=== PATIENT | female | born 1970 | race Caucasian/White ===

== ENCOUNTER 2018-06-26 09:20 | Inpatient (IN) ==
[2018-06-26] MEDS ORDERED: ceFAZolin 2 GM Premix Inj 2 GM/50 ML PIGGYBACK IV.SIG SCH (10:00)
[2018-06-26] MEDS ORDERED: Chlorhexidine Gluconate 2% 1 Pack (2 Cloths) TOPICAL ONE (10:15)
[2018-06-26] MEDS ORDERED: Sodium Chlor 0.9% Inj 500 ML IV.CONT ONE (10:15)
[2018-06-26] MEDS ORDERED: Metoprolol Tartrate 25 MG Tablet PO ONE (10:15)
[2018-06-26 10:19] LABS: Baso % (Auto) 0.6 % (0.0-2.0); Eos # (Auto) 0.2 th/mm3 (0.0-0.4); Eos % (Auto) 3.4 % (0.0-4.0); Hematocrit 35.9 % (35.0-46.0); Hemoglobin 12.2 gm/dL (11.6-15.3); Lymph # (Auto) 1.6 th/mm3 (1.0-4.8); Mean Corpuscular HGB Conc 34.1 % (32.0-36.0); Mean Corpuscular Hemoglobin 30.6 pg (27.0-34.0); Mean Corpuscular Volume 89.6 fL (80.0-100.0); Mean Platelet Volume 8.4 fL (7.0-11.0); Mono # (Auto) 0.6 th/mm3 (0.0-0.9); Mono % (Auto) 9.9 % (0.0-8.0); Neut % (Auto) 62.1 % (16.0-70.0); Platelet Count 206 th/mm3 (150-450); Red Cell Distribution Width 13.2 % (11.6-17.2); White Blood Count 6.5 th/mm3 (4.0-11.0)
--- NOTE | 2018-06-26 12:22 | P.OP ---
- Preoperative Diagnosis (1) Excessive menses (2) High grade squamous intraepithelial cervical dysplasia Date of procedure: 06/26/18 Procedure: PEREZ BSO Anesthesia: GETA Surgeon: Braydon Oswald MD [address] Clerk: Delia Finch Pathology: other (uterus cervix and BSO)
[2018-06-26] MEDS ORDERED: *HYDROmorphone PF Inj 1 MG/ML Ampul PERIprocedural Use ONLY ONE ×2 (12:43→13:00)
--- NOTE | 2018-06-26 12:46 | MP ---
cc: Braydon Oswald MD DATE OF OPERATION: 06/26/2018 DATE OF PROCEDURE: 06/26/2018. PROCEDURE: Total abdominal hysterectomy, bilateral salpingo-oophorectomy. PREOPERATIVE DIAGNOSIS: Severe dysplasia with excessive menses. POSTOPERATIVE DIAGNOSIS: Severe dysplasia with excessive menses. SURGEON: Dr. Braydon Oswald. ESTIMATED BLOOD LOSS: 100 mL. COMPLICATIONS: None. FINDINGS: The patient had an 8 cm uterus. This was adherent to the anterior abdominal wall. Moderate scar tissue of the fallopian tubes and ovaries to the uterus and the pelvic sidewall. ASSISTED: Delia Deutsch APRN. ANESTHESIA: General. PROCEDURE IN DETAIL: After informed consent, the patient was taken to the operating room where she was placed in supine position. Woodson catheter was then placed to gravity. Abdomen, perineum, vagina were prepped and draped in the normal sterile fashion. Timeout was taken. Once a timeout was taken and agreed upon, a Pfannenstiel skin incision was carried sharply to the old scar to the fascia. The fascia was nicked in the midline. The incision was extended laterally using Junior scissors. Rectus muscles dissected off, fascia, sharp and blunt dissection secondary to scar tissue. Once we completely dissected the rectus muscle off the fascia in the area of surgery the rectus muscle in the midline. Peritoneum was bluntly entered, incisions had to be extended upward and downward with sharp dissection secondary to scar tissue. At this point, the uterus was noted to be adherent to the anterior abdominal wall and the ovary, especially the right was adherent to the pelvic sidewall. Using Kari clamps we elevated the uterus. We dissected off the anterior abdominal wall first avoiding injury to the bladder, pushed the bladder down on the cervix. At this point, round ligaments were identified. We opened the round ligaments dissected the round ligaments. On the left, once the round ligaments had been bisected and sutured we were able to come across the infundibulopelvic ligament and remove that ovary along with the uterus on the right. The ovary was adherent to the pelvic sidewall and decision was made to take the uteroovarian ligament and leave the ovary in place for now. At this point, we continued down the broad ligament taking the uterine arteries clamped, cutting, and tying as we went with 0 Vicryl suture. Once we reached the bladder flap, we dissected the bladder off the lower uterine segment. There was scar tissues from the . We pushed the bladder all the way off the cervix. Once we were down pushed down all the way, we were able to take straight clamps, take the cervical branches of the uterine arteries and then came across the vagina with curved Asya's. Closed the vaginal cuff easily. Both angles were closed and a single stitch was required with a very small 0.5 cm space in the middle. This was closed with a [id number] avoiding injury to the bladder. The urine remained clear. At this point, the right ovary was dissected off the pelvic sidewall with sharp and blunt dissection. Once the ovary was freed, the infundibulopelvic ligament was identified. We came across with a clamp, the fallopian tube and ovary removed intact. Both ovaries and fallopian tubes have been removed along with the uterus. Vaginal cuff was closed, irrigated well copiously. There was no active bleeding. All the procedure was ended. All instruments were removed. The rectus muscles brought back together and then the fascia was closed with a #1 Vicryl suture. The patient tolerated the procedure well. She was taken to the recovery room in stable condition after lap and instrument counts reported as correct. MD CRISTINA Benoit/luis , 12:19 PM , 12:27 PM
[2018-06-26] MEDS ORDERED: fentaNYL Citrate Inj 100 MCG/2 ML Ampul ONE (13:14)
[2018-06-26] MEDS: Gabapentin 300 MG Capsule PO SCH ×2 (15:47→19:09)
[2018-06-26] MEDS: buPROPion 150 MG 12 HR Tablet PO SCH (16:10)
[2018-06-26] MEDS: HYDROmorphone PF Inj 1 MG/ML Ampul IV.PUSH PRN (17:12)
[2018-06-26] MEDS ORDERED: QUEtiapine 100 MG Tablet PO SCH (21:00)
[2018-06-26] MEDS ORDERED: QUEtiapine 25 MG Tablet PO SCH (21:00)
[2018-06-26] MEDS: Docusate Sodium 100 MG Capsule PO SCH (21:23)
[2018-06-27] MEDS: HYDROmorphone PF Inj 1 MG/ML Ampul IV.PUSH PRN (04:27)
[2018-06-27 05:49] LABS: Baso % (Auto) 0.2 % (0.0-2.0); Eos % (Auto) 0.1 % (0.0-4.0); Hematocrit 32.7 % (35.0-46.0); Lymph # (Auto) 1.3 th/mm3 (1.0-4.8); Lymph % (Auto) 14.3 % (9.0-44.0); Mean Corpuscular HGB Conc 33.7 % (32.0-36.0); Mean Corpuscular Hemoglobin 30.5 pg (27.0-34.0); Mean Corpuscular Volume 90.3 fL (80.0-100.0); Mean Platelet Volume 8.4 fL (7.0-11.0); Mono # (Auto) 0.8 th/mm3 (0.0-0.9); Mono % (Auto) 9.2 % (0.0-8.0); Neut % (Auto) 76.2 % (16.0-70.0); Platelet Count 208 th/mm3 (150-450); Red Blood Count 3.62 mil/mm3 (4.00-5.30); Red Cell Distribution Width 13.4 % (11.6-17.2); White Blood Count 9.2 th/mm3 (4.0-11.0)
[2018-06-27] MEDS: buPROPion 150 MG 12 HR Tablet PO SCH (08:00)
[2018-06-27] MEDS: Gabapentin 300 MG Capsule PO SCH ×2 (08:01→12:02)
[2018-06-27] MEDS: Docusate Sodium 100 MG Capsule PO SCH (08:08)
[2018-06-27] MEDS ORDERED: Lisinopril 20 MG Tablet PO SCH (09:00)
[2018-06-27] MEDS ORDERED: QUEtiapine 25 MG Tablet PO SCH (09:00)
--- NOTE | 2018-06-27 13:16 | P.PNOB ---
Subjective Post op day: 1 Interval history: patient post op day #1 but voiding ambulating and passing flatus, she is smoking in bathroom and ready for DC home Objective Vital Signs/I&O: Vital Signs 06/26/18 14:00 06/26/18 16:15 06/26/18 17:35 Temperature 98.0 F 97.6 F 98.0 F Pulse Rate 54 L 51 L 67 Respiratory Rate 16 18 16 Blood Pressure 147/73 H 170/74 H 129/61 Pulse Oximetry 98 99 94 L 06/26/18 20:17 06/27/18 00:20 06/27/18 04:21 Temperature 97.5 F L 98.3 F 98.0 F Pulse Rate 51 L 60 67 Respiratory Rate 16 16 16 Blood Pressure 141/72 H 137/67 135/71 Pulse Oximetry 97 100 99 06/27/18 08:10 Temperature 98.1 F Pulse Rate 64 Respiratory Rate 20 Blood Pressure 103/61 Pulse Oximetry 96 Intake & Output 06/26/18 06/27/18 06/27/18 18:59 06:59 18:59 Intake Total 550 / 550 2000 / 2000 Output Total 325 / 325 2069 400 / 400 Balance 225 / 225 -70 / -70 -400 / -400 Weight 120.9 kg Intake: IV 50 / 50 2000 / 2000 LR 1000 mL Inj 1,000 ML @ 125 2000 / 2000 mls/hr IV.CONT .Q8H [facility] Rx#: [id number] Ancef 2 GM Premix Inj 2 gm In 50 / 50 50 ml @ 100 mls/hr IV.SIG LOADING UNIT TOOL SETTER [facility] Rx#:[id number] Anesthesia Amount 500 / 500 Output: Urine 400 / 400 Estimated Blood Loss 200 / 200 Urine Amount (Catheter) 125 / 125 2069 Indwelling Urethral Catheter 125 / 125 2069 Other: Weight On Admission 120.9 kg Result Diagrams: 06/27/18 05:21 Objective Remarks: GENERAL: Well-nourished, well-developed patient. . ABDOMEN/GI: Abdomen soft, non-tender, bowel sounds present. Incision: Clean, dry and intact. Fundus: Firm, non-tender at umbilicus. GENITOURINARY: Light to moderate bleeding. EXTREMITIES: No cyanosis or edema, non-tender, without signs of DVT. Medications and IVs: Active Medications Bupropion HCl (Wellbutrin Sr) 150 mg PO DAILY [facility] Last Admin: 06/27/18 08:00 Dose: 150 mg Citalopram Hydrobromide (Celexa) 40 mg PO DAILY [facility] Last Admin: 06/27/18 08:00 Dose: 40 mg Diphenhydramine HCl (Benadryl) 25 mg PO Q6H PRN PRN Reason: ITCHING Docusate Sodium (Colace) 100 mg PO BID [facility] Last Admin: 06/27/18 08:08 Dose: 100 mg Gabapentin (Neurontin) 300 mg PO TID [facility] Last Admin: 06/27/18 12:02 Dose: 300 mg Hydrochlorothiazide (Microzide) 12.5 mg PO DAILY [facility] Last Admin: 06/27/18 08:00 Dose: 12.5 mg Hydromorphone HCl (Dilaudid Pf Inj) 1 mg IV.PUSH Q4H PRN PRN Reason: BREAKTHROUGH PAIN Last Admin: 06/27/18 04:27 Dose: 1 mg Cefazolin Sodium/Dextrose (Ancef 2 Gm Premix Inj) 2 gm in 50 mls @ 100 mls/hr IV.SIG LOADING UNIT TOOL SETTER [facility] Stop: 06/29/18 09:59 Last Infusion: 06/26/18 11:06 Dose: Infused Lactated Ringer's (Lr 1000 Ml Inj) 1,000 mls @ 125 mls/hr IV.CONT .Q8H [facility] Last Admin: 06/27/18 04:26 Dose: 125 mls/hr Lisinopril (Prinivil) 20 mg PO DAILY [facility] Last Admin: 06/27/18 08:57 Dose: 20 mg Lorazepam (Ativan Inj) 1 mg IV.PUSH Q6H PRN PRN Reason: ANXIETY Ondansetron HCl (Zofran Inj) 4 mg IV.PUSH Q6H PRN PRN Reason: NAUSEA OR VOMITING Last Admin: 06/26/18 16:11 Dose: 4 mg Oxycodone/Acetaminophen (Percocet 5/325 Mg) 2 tab PO Q4H PRN PRN Reason: PAIN SCALE 6 TO 10 Last Admin: 06/27/18 12:01 Dose: 2 tab Oxycodone/Acetaminophen (Percocet 5/325 Mg) 1 tab PO Q4H PRN PRN Reason: PAIN SCALE 1 TO 5 Promethazine HCl (Phenergan Inj) 25 mg IM Q6H PRN PRN Reason: NAUSEA OR VOMITING Last Admin: 06/26/18 21:21 Dose: 25 mg Quetiapine Fumarate (Seroquel) 25 mg PO DAILY [facility] Last Admin: 06/27/18 08:01 Dose: 25 mg Quetiapine Fumarate (Seroquel) 25 mg PO HS [facility] Last Admin: 06/26/18 21:22 Dose: 25 mg Quetiapine Fumarate (Seroquel) 100 mg PO HS [facility] Last Admin: 06/26/18 21:23 Dose: 100 mg Sodium Chloride (Ns Flush) 2 ml IV.FLUSH BID [facility] Last Admin: 06/27/18 08:08 Dose: Not Given Sodium Chloride (Ns Flush) 2 ml IV.FLUSH PRN PRN PRN Reason: FLUSH AFTER USING IV ACCESS Last Admin: 06/27/18 04:28 Dose: 2 ml Assessment and Plan - Diagnosis (1) High grade squamous intraepithelial cervical dysplasia Code(s): R87.613 - High grade squamous intraepithelial lesion on cytologic smear of cervix (HGSIL) Status: Acute (2) Excessive menses Code(s): N92.0 - Excessive and frequent menstruation with regular cycle Status : Acute - Plan dc today at Pt request
--- NOTE | 2018-06-27 13:24 | P.DS ---
Date of admission: 06/26/18 09:20 Primary care physician: Pieter Jaquez MD Brief History from admission: dysplasia and excessive menses, She had PEREZ BSO, ready for DC home DS: Diagnosis - Discharge Diagnosis (1) High grade squamous intraepithelial cervical dysplasia Status: Acute (2) Excessive menses Status: Acute DS: Medications - Discharge Medications Prescriptions: oxycodone-acetaminophen 2 tab PO Q4H PRN 3 Days #24 tab PRN Reason: Pain Scale 6 To 10 DS: Summary Hospital Course: pt came and had PEREZ BSO, and DC home - Time Spent with Patient Total time spent providing and/or coordinating discharge services: Less than 30 minutes Exam Vital signs: Vital Signs 06/26/18 14:00 06/26/18 16:15 06/26/18 17:35 Temperature 98.0 F 97.6 F 98.0 F Pulse Rate 54 L 51 L 67 Respiratory Rate 16 18 16 Blood Pressure 147/73 H 170/74 H 129/61 Pulse Oximetry 98 99 94 L 06/26/18 20:17 06/27/18 00:20 06/27/18 04:21 Temperature 97.5 F L 98.3 F 98.0 F Pulse Rate 51 L 60 67 Respiratory Rate 16 16 16 Blood Pressure 141/72 H 137/67 135/71 Pulse Oximetry 97 100 99 06/27/18 08:10 Temperature 98.1 F Pulse Rate 64 Respiratory Rate 20 Blood Pressure 103/61 Pulse Oximetry 96 Intake & Output 06/26/18 06/27/18 06/27/18 18:59 06:59 18:59 Intake Total 550 / 550 1999 / 1999 Output Total 325 / 325 2069 400 / 400 Balance 225 / 225 -70 / -70 -400 / -400 Weight 120.9 kg Intake: IV 50 / 50 1999 / 2000 LR 1000 mL Inj 1,000 ML @ 125 2000 / 2000 mls/hr IV.CONT .Q8H [facility] Rx#: [id number] Ancef 2 GM Premix Inj 2 gm In 50 / 50 50 ml @ 100 mls/hr IV.SIG CIGAR MAKER KAYLEE Rx#:[id number] Anesthesia Amount 500 / 500 Output: Urine 400 / 400 Estimated Blood Loss 200 / 200 Urine Amount (Catheter) 125 / 125 2069 Indwelling Urethral Catheter 125 / 125 2069 Other: Weight On Admission 120.9 kg - Constitutional no acute distress Results Procedures completed during hospitalization: PEREZ BSO Pending studies at discharge: Pending at discharge 06/26/18 14:05 Surgical [PTH] Routine Labs on day of discharge: Labs from last 24 hours 06/27/18 05:21 WBC 9.2 RBC 3.62 L Hgb 11.0 L Hct 32.7 L MCV 90.3 MCH 30.5 MCHC 33.7 RDW 13.4 Plt Count 208 MPV 8.4 Neut % (Auto) 76.2 H Lymph % (Auto) 14.3 [place] % (Auto) 9.2 H Eos % (Auto) 0.1 Baso % (Auto) 0.2 Neut # (Auto) 7.0 Lymph # (Auto) 1.3 [place] # (Auto) 0.8 Eos # (Auto) 0.0 Baso # (Auto) 0.0 WBC Differential . Differential Comment Auto diff final Discharge Plan - Discharge Disposition Patient Disposition: 01 Discharge Home - Discharge Condition Condition: Good - Discharge Order Discharge Orders: Discharge Order (Routine); Ordered 06/27/18 Ordered By: Braydon Oswald - Physicians Team Primary Care Provider: Pieter Jaquez Attending Provider: Braydon Oswald Other Providers: ; - Rxs /Orders / Referrals /Forms Prescriptions: New oxycodone-acetaminophen 5-325 mg Tablet 2 tab PO Q4H PRN (Reason: Pain Scale 6 To 10) 3 Days Qty: 24 RF: 0 Continue albuterol sulfate [Ventolin HFA] 90 mcg/actuation Hfa Aerosol Inhaler 1 puff INHALATION Q4-6H PRN (Reason: Shortness Of Breath) atorvastatin [Lipitor] 20 mg Tablet 20 mg PO DAILY bupropion HCl [Wellbutrin XL] 150 mg Tablet Extended Release 24 Hr 150 mg PO QAM cholecalciferol (vitamin D3) [Vitamin D3] 5,000 unit Tablet 5,000 unit PO DAILY citalopram [Celexa] 40 mg Tablet 40 mg PO DAILY cyanocobalamin (vitamin B-12) 1,000 mcg/mL Kit 1,000 mcg IM QMONTH cyclobenzaprine 10 mg Tablet 10 mg PO BID ergocalciferol (vitamin D2) [Vitamin D2] 50,000 unit Capsule 50,000 unit PO QWEEK fluticasone-vilanterol [Breo Ellipta] 100-25 mcg/dose Blister With Device 1 inh INHALATION DAILY folic acid 1 mg Tablet 1 mg PO DAILY gabapentin 300 mg Capsule 300 mg PO TID lisinopril-hydrochlorothiazide 20-12.5 mg Tablet 1 tab PO DAILY lorazepam 1 mg Tablet 1 mg PO DAILY meloxicam [Mobic] 15 mg Tablet 15 mg PO DAILY omega3,5,6,7,9 no.1-salmon oil [Complete Eva] 700-1,500 mg-mg Capsule 4 cap PO DAILY phentermine 37.5 mg Tablet 37.5 mg PO DAILY quetiapine [Seroquel] 25 mg Tablet 25 mg PO DAILY quetiapine [Seroquel] 100 mg Tablet 125 mg PO HS tamoxifen 20 mg Tablet 20 mg PO DAILY umeclidinium [Incruse Ellipta] 62.5 mcg/actuation Blister With Device 1 inh INHALATION DAILY Discontinued hydrocodone-acetaminophen 7.5-325 mg Tablet 1 tab PO DAILY Referrals: Pieter Jaquez MD [Primary Care Provider] - See Instructions Braydon Oswald MD [Physician] - See Instructions (2 weeks) - Discharge Instructions Patient Printed Instructions: Hysterectomy (DC) - Post Discharge Care Plan Care Plan Goals: We want you to have a wonderful recovery! Please Report the Following Symptoms to Your Doctor: -Temperature above 100.5 degrees -Redness of incision or excessive or foul smelling drainage -Unusual pain or calf pain -Increased vaginal bleeding -Painful or difficulty urinating Goals to Promote Your Health * To prevent worsening of your condition and complications * To maintain your health at the optimal level Directions to Meet Your Goals Take your medications as prescribed Follow your dietary instruction Follow activity as directed Ensure plenty of rest for recovery Drink fluids for hydration Keep your appointments as scheduled Take your immunizations and boosters as scheduled If your symptoms worsen call your [employer] Physician, or go to an Urgent Care Center or Emergency Room Smoking is Dangerous to your health. Avoid second hand smoke Call the 24-hour crisis hotline for domestic abuse at
[2018-06-27] MEDS ORDERED: Influenza (Quadrivalent) Vaccine 0.5 ML Syringe IM ONE (16:00)
== END 2018-06-27 16:05 | disposition home or self-care (01) ==
LOC: HSDI 09:20 → H1EA 13:34
PROVIDERS: ADMIT Obstetrics & Gynecology; ATTEND Obstetrics & Gynecology